=== PATIENT | male | born 1980 | race Caucasian/White ===

== ENCOUNTER 2019-10-31 07:00 | Day surgery (SDC) | payer OTHER ==
[~2019-10-31] VITALS: Ht 177.8 cm; Wt 95.3 kg
--- NOTE | 2019-10-31 17:59 | NUR ---
PACIENTE REFIERE DOLOR ABDOMINAL EN EL CUADRANTE INFERIOR DERECHO QUE COMENZO TIM. NO PRESENTA VOMITOS NI DIARREAS.
--- NOTE | 2019-10-31 18:05 | NUR ---
PTE EVALUADO POR EL DR MeiSO QUIEN ORDENA [place]. MS Y MCGRAW ORIENTA SOBRE EL MISMO, LO CUAL REFIERE ENTENDER, REALIZA PRUEBAS DE LABORATORIO Y ADMINISTRA MEDICAEMNTOS TRUDI ORDEN MEDICA Y SIGUIENDO MEDIDAS ASEPTICAS. CT NOTIFICADO A PERSONAL DE TURNO.
[2019-11-01] MEDS ORDERED: PERCOCET 5-3251 EACH PO (15:10)
== END 2019-11-01 08:00 | disposition home or self-care (01) ==
LOC: CIR.AMB 07:00 → ER 17:22 → SEC-K 19:56 → EDSTATUS 21:00 → SEC-K 22:27 → SURG 22:27 → CIR.AMB 11-01 08:00 → SURG 11-01 15:47
DX: K35.890 Other acute appendicitis without perforation or gangrene (principal)